=== PATIENT | female | born 1960 | race Caucasian/White ===

== ENCOUNTER 2019-04-21 15:21 | Emergency (ER) | payer OTHER, SELFPAY ==
[2019-04-21 15:37] VITALS: BP 173/90; PULSE 92; RESP 22; TEMP 37; O2SAT 99; BMI 23.0
--- NOTE | 2019-04-21 15:39 | DI.RAD.S_ITS ---
PROCEDURE: XR CHEST 1V INDICATIONS: Cough x 3 weeks. TECHNIQUE: One view of the chest was acquired. COMPARISON: None. FINDINGS: Surgical changes and devices: None apparent. Lungs and pleura: Lungs are clear. No pleural effusions or pneumothorax. Mediastinum: Mediastinal contours appear normal. Heart size is normal. Bones and chest wall: No suspicious bony lesions. Overlying soft tissues appear unremarkable. IMPRESSION: No acute cardiopulmonary process is evident. Dictated by: Cheikh Mohan M.D. on 04/21/2019 at 15:18 Approved by: Cheikh Mohan M.D. on 04/21/2019 at 15:30
--- NOTE | 2019-04-21 15:42 | ED.DIZZY ---
HPI - Dizziness <LUZ Coyne - Last Filed: 04/21/19 21:44> General Chief Complaint: Dizziness Stated Complaint: fatigue, nausea, lightheaded today Time Seen by Provider: 04/21/19 15:30 Source: patient Mode of arrival: ambulatory Limitations: no limitations History of Present Illness HPI Narrative: 58-year-old female with a history of chronic neutropenia ranging from 2-2.6 for the past 30 years, presents emergency department today [place]. She states that she was walking and started to feel woozy so she sat down, he vomited once and then when out to dinner with her friends. She states she was able eat some chips and drink some water without vomiting. She states she still feels a little bit nauseated but denies any dizziness at this time, however she is supposed to drive back to [place] and she is worried about passing out. The patient states she drinks about 2-3 glasses of wine a day. The patient also admits she has been treated for upper respiratory infection she has had about for 2-3 week for which she is currently taking Bactrim for. She denies any chest pain, vision changes, headaches, head trauma, neck pain, chest pain, shortness of breath, abdominal pain, diarrhea, or complete syncope. Related Data Allergies Allergy/AdvReac Type Severity Reaction Status Date / Time barium sulfate Allergy Verified 04/21/19 15:37 Review of Systems <LUZ Coyne - Last Filed: 04/21/19 21:44> Review of Systems REVIEW OF SYSTEMS: GENERAL: Denies fever or chills. HENT: No head trauma, hearing loss or sore throat. EYES: No loss of vision, double vision, eye pain, or irritation. CARDIOVASCULAR: Complains of lightheadedness, see HPI. RESPIRATORY: No shortness of breath or cough. GASTROINTESTINAL: Complains of vomiting, see HPI. GENITOURINARY: No flank pain or dysuria. MUSCULOSKELETAL: No pain, weakness, or deformities. INTEGUMENTARY: No rash, lesions, or pruritus. NEURO: No numbness, tingling, memory loss, or confusion. PSYCH: No behavior or mood changes. PFSH <LUZ Coyne - Last Filed: 04/21/19 21:44> Medical History Neutropenia (Acute) Social History Smoking Status: Never smoker Social History Smoking Status: Never smoker Exam <LUZ Coyne - Last Filed: 04/21/19 21:44> Initial Vital Signs Initial Vital Signs: Vital Signs Temperature 98.6 F 04/21/19 15:37 Pulse Rate 92 H 04/21/19 15:37 Respiratory Rate 22 04/21/19 15:37 Blood Pressure 173/90 H 04/21/19 15:37 Pulse Oximetry 99 04/21/19 15:37 PHYSICAL EXAMINATION: GENERAL: Well groomed, alert, and cooperative Answers questions promptly and appropriately. Vital signs noted. HENT: Normocephalic, atraumatic. Ear canals patent, tympanic membranes normal without irritation or effusion, crisp light reflex present. Oral mucosa is pink and moist, no caries or lesions present. Pharynx without erythema. EYES: PERRLA, EOMIs, conjunctiva pink, sclera white, no periorbital swelling. NECK: Full range of motion, nontender. LYMPH: No lymphadenopathy. CHEST: Normal to inspection and without deformities. CARDIOVASCULAR: S1 and S2 sounds normal. Regular rate and rhythm, no murmurs, clicks, or bruits. No pedal edema. Patient able to ambulate without dizziness. RESPIRATORY: Normal respiratory rate, trachea midline, airway patent. No stridor, nasal flaring or accessory muscle use. Lungs are clear in all spear without wheeze, rhonchi, or crackles. GASTROINTESTINAL: Bowel sounds normoactive. Abdomen is soft and non-tender. No organomegaly. MUSCULOSKELETAL: Normal gait and coordination. Equal tone and mass bilaterally. No spinal tenderness or deformities. EXTREMITIES: CMS intact. Moves all extremities. SKIN: Warm, dry, soft, appropriate color for ethnicity. No lesions, rashes, or wounds. NEURO: Alert and Oriented X 3. CN III-XII intact. Good coordination. No ataxia, or sensory deficits, or cognitive issues. PSYCH: Appropriate affect and mood. <Carmen Michaud DO - Last Filed: 04/22/19 07:50> Initial Vital Signs Initial Vital Signs: Vital Signs Temperature 98.6 F 04/21/19 15:37 Pulse Rate 92 H 04/21/19 15:37 Respiratory Rate 22 04/21/19 15:37 Blood Pressure 173/90 H 04/21/19 15:37 Pulse Oximetry 99 04/21/19 15:37 Scores <Lisa LUZ Perla - Last Filed: 04/21/19 21:44> HEART Score Heart Score history: Slightly Suspicious Heart Score EKG: Normal Heart Score Age: 45-64 years old Heart Score risk factors: 1-2 risk factors Heart Score troponin: < or = to normal limit Heart Score Total: 2 Course <Lisa VitaleLUZ oakes - Last Filed: 04/21/19 21:44> Course Narrative: After rehydration with normal saline, patient states she is feeling much better and is ready go home. Orders Ordered: Discontinued Medications Sodium Chloride (Normal Saline 0.9%) 1,000 mls @ 1,000 mls/hr IV BOLUS ONE Stop: 04/21/19 16:37 Last Infusion: 04/21/19 17:36 Dose: 0 mls/hr Admin: 04/21/19 16:08 Dose: 1,000 mls/hr Ondansetron HCl (Zofran) 4 mg IV NOW ONE Stop: 04/21/19 15:39 Last Admin: 04/21/19 16:07 Dose: 4 mg Consultations Consultation #1: Patient staffed Dr. Michaud. Vital Signs - 8 hr 04/21/19 15:37 04/21/19 16:48 04/21/19 17:46 Temperature 98.6 F Pulse Rate 92 H 85 77 Respiratory Rate 22 20 16 Blood Pressure 173/90 H 138/76 Blood Pressure [Left Arm] 154/77 H Pulse Oximetry 99 100 98 <Carmen Michaud DO - Last Filed: 04/22/19 07:50> Orders Ordered: Discontinued Medications Sodium Chloride (Normal Saline 0.9%) 1,000 mls @ 1,000 mls/hr IV BOLUS ONE Stop: 04/21/19 16:37 Last Infusion: 04/21/19 17:36 Dose: 0 mls/hr Admin: 04/21/19 16:08 Dose: 1,000 mls/hr Ondansetron HCl (Zofran) 4 mg IV NOW ONE Stop: 04/21/19 15:39 Last Admin: 04/21/19 16:07 Dose: 4 mg Vital Signs - 8 hr 04/21/19 15:37 04/21/19 16:48 04/21/19 17:46 Temperature 98.6 F Pulse Rate 92 H 85 77 Respiratory Rate 22 20 16 Blood Pressure 173/90 H 138/76 Blood Pressure [Left Arm] 154/77 H Pulse Oximetry 99 100 98 MDM - Dizziness <LUZ Coyne - Last Filed: 04/21/19 21:44> Medical Records Attestation: I reviewed the patient's medical records. Lab Data Attestation: I reviewed the patient's lab results. Result diagrams: 04/21/19 15:55 04/21/19 15:55 Lab Results 04/21/19 04/21/19 04/21/19 Range/Units 15:55 15:55 16:35 WBC 1.6 L* (4.5-11.0) X10^3/uL RBC 4.06 (4.0-5.2) X10^6/uL Hgb 14.0 (12.0-16.0) g/dL Hct 40.5 (36-46) % MCV 99.7 (80-100) fL MCH 34.3 H (26-34) PG MCHC 34.4 (30-36) % RDW 12.0 (11.6-14.8) % Plt Count 298 (150-400) X10^3/uL Neut % (Auto) 17.7 L (50-75) % Lymph % (Auto) 47.6 H (25-40) % Rich % (Auto) 33.1 H (3-14) % Eos % (Auto) 0.2 L (2-4) % Baso % (Auto) 1.4 (0-2) % Neut # (Auto) 300 L (8493-2270) /uL Lymph # (Auto) 800 L (0194-8059) /uL Rich # (Auto) 500 (0-900) /uL Eos # (Auto) 0 (0-450) /uL Baso # (Auto) 0 (0-100) /uL Sodium 130 L (137-145) mmol/L Potassium 4.2 (3.4-5.1) mmol/L Chloride 88 L (98-107) mmol/L Carbon Dioxide 29 (22-32) mmol/L BUN 9 (7-17) mg/dL Creatinine 0.50 L (0.52-1.04) mg/dL Estimated GFR > 60.0 (>60) mL/min BUN/Creatinine Ratio 18.0 (6-22) Glucose 129 H (70-100) mg/dL Lactate 1.0 (0.7-2.1) mmol/L Calcium 9.6 (8.4-10.2) mg/dL Total Bilirubin 0.5 (0.2-1.3) mg/dL AST 50 H (14-36) IU/L ALT 66 H (9-52) IU/L Alkaline Phosphatase 104 (38-126) U/L Total Creatine Kinase 40 (30-135) U/L CK-MB (CK-2) TNP CK-MB (CK-2) Rel Index TNP Troponin I < 0.012 (0.01-0.034) ng/mL Total Protein 9.0 H (6.3-8.2) g/dL Albumin 5.0 (3.5-5.0) g/dL Globulin 4.0 (1.7-4.1) g/dL Albumin/Globulin Ratio 1.3 (1.0-2.8) Urine Dip Bedside Urine Glucose Negative Bedside Urine Bilirubin - Negative Bedside Urine Ketone +/- 5 Urine Specific [place] 1.015 Bedside Urine Occult Blood - Negative Bedside Urine pH 6.0 Bedside Urine Protein - Negative Bedside Urine Urobilinogen - Negative Bedside Urine Nitrite - Negative Bedside Urine Leukocytes - Negative Esterase Imaging Data Chest x-ray: Radiologist's impression: [address] [address] XRay Report Signed Patient: Sofia Mueller BMR#: [id number] : 2Acct:[id number] Age/Sex: 58 / FDate of Service: 04/21/19 Loc: ED Accession Number: [id number] Procedure: XR chest 1V Ordering Provider: Lisa Perla PROCEDURE: XR CHEST 1V INDICATIONS: Cough x 3 weeks. TECHNIQUE: One view of the chest was acquired. COMPARISON: None. FINDINGS: Surgical changes and devices: None apparent. Lungs and pleura: Lungs are clear. No pleural effusions or pneumothorax. Mediastinum: Mediastinal contours appear normal. Heart size is normal. Bones and chest wall: No suspicious bony lesions. Overlying soft tissues appear unremarkable. IMPRESSION: No acute cardiopulmonary process is evident. Dictated by: Cheikh Mohan M.D. on 04/21/2019 at 15:18 Approved by: Cheikh Mohan M.D. on 04/21/2019 at 15:30 ECG Data Interpretation: Normal sinus rhythm, rate 84, [place] interval 158, QTC 416. No ST elevation or ST depression, no ectopy, no T-wave inversion. EKG was also read by Dr. Michaud. MDM Narrative Medical decision making narrative: Differential includes dehydration (most likely due to improvement with fluids, patient symptoms improved when she sat down, laboratory results, lack of findings for acute coronary syndrome), vagal response, viral infection (patient reports vomiting), for cardiac disease (less likely due to normal EKG, normal cardiac enzymes, no chest pain or other acute complaint). I suspect that patient's neutropenia was made worse by her long course of Bactrim and ciprofloxacin. After chest x-ray evaluation I do not suspect an upper respiratory tract infection or pneumonia and told patient to discontinue the antibiotics. Extensive instruction was given to patient for follow-up of the labs, including a white blood cell count and liver enzymes (this may be affected by her alcohol intake). Patient verbalized understanding. Strict return precautions were given. <Carmen Michaud, - Last Filed: 04/22/19 07:50> Lab Data Lab Results 04/21/19 04/21/19 04/21/19 Range/Units 15:55 15:55 16:35 WBC 1.6 L* (4.5-11.0) X10^3/uL RBC 4.06 (4.0-5.2) X10^6/uL Hgb 14.0 (12.0-16.0) g/dL Hct 40.5 (36-46) % MCV 99.7 (80-100) fL MCH 34.3 H (26-34) PG MCHC 34.4 (30-36) % RDW 12.0 (11.6-14.8) % Plt Count 298 (150-400) X10^3/uL Neut % (Auto) 17.7 L (50-75) % Lymph % (Auto) 47.6 H (25-40) % Rich % (Auto) 33.1 H (3-14) % Eos % (Auto) 0.2 L (2-4) % Baso % (Auto) 1.4 (0-2) % Neut # (Auto) 300 L (8194-0700) /uL Lymph # (Auto) 800 L (6503-7870) /uL Rich # (Auto) 500 (0-900) /uL Eos # (Auto) 0 (0-450) /uL Baso # (Auto) 0 (0-100) /uL Sodium 130 L (137-145) mmol/L Potassium 4.2 (3.4-5.1) mmol/L Chloride 88 L (98-107) mmol/L Carbon Dioxide 29 (22-32) mmol/L BUN 9 (7-17) mg/dL Creatinine 0.50 L (0.52-1.04) mg/dL Estimated GFR > 60.0 (>60) mL/min BUN/Creatinine Ratio 18.0 (6-22) Glucose 129 H (70-100) mg/dL Lactate 1.0 (0.7-2.1) mmol/L Calcium 9.6 (8.4-10.2) mg/dL Total Bilirubin 0.5 (0.2-1.3) mg/dL AST 50 H (14-36) IU/L ALT 66 H (9-52) IU/L Alkaline Phosphatase 104 (38-126) U/L Total Creatine Kinase 40 (30-135) U/L CK-MB (CK-2) TNP CK-MB (CK-2) Rel Index TNP Troponin I < 0.012 (0.01-0.034) ng/mL Total Protein 9.0 H (6.3-8.2) g/dL Albumin 5.0 (3.5-5.0) g/dL Globulin 4.0 (1.7-4.1) g/dL Albumin/Globulin Ratio 1.3 (1.0-2.8) Urine Dip Bedside Urine Glucose Negative Bedside Urine Bilirubin - Negative Bedside Urine Ketone +/- 5 Urine Specific [place] 1.015 Bedside Urine Occult Blood - Negative Bedside Urine pH 6.0 Bedside Urine Protein - Negative Bedside Urine Urobilinogen - Negative Bedside Urine Nitrite - Negative Bedside Urine Leukocytes - Negative Esterase ECG Data Attestation: I personally reviewed and interpreted this ECG as follows: Prior ECG tracings: not available for review Interpretation: Sinus rhythm low voltage rate 84 P are [address] changes nonpathologic Q-waves noted in lead 3 and lead 2 only no prior to compare Discharge Plan Departure Patient Disposition: Home Clinical Impression: Acute dehydration Neutropenia Qualifiers: Neutropenia type: unspecified Qualified Code(s): D70.9 - Neutropenia, unspecified Discharge Date/Time: 04/21/19 17:47 Interventions: ED Discharge Assessment Last Done: 04/21/19 17:46 Instructions: DI for Dizziness-Nonvertigo, DI for Neutropenia Activity Restrictions/Additional Instructions: Thank you for entrusting me with your care today. As discussed, her chest x-ray was negative for any concerning findings such as pneumonia, your lab work showed elevated liver enzymes and a low white blood cell count. I suggest following up with your primary care provider in the next week for recheck of these labs. I also suggest decreasing alcohol intake as this may have caused your liver enzymes to be elevated. Please discontinue the Bactrim as well, may be responsible for the further decrease of your white blood cell count. Return to the emergency department if you develop fevers, chest pain, syncope, shortness of breath, or severe abdominal pain. Referrals: Dixon Pisano MD [Primary Care Provider] - <Cramen Michaud DO - Last Filed: 04/22/19 07:50> Cosign ED Attending Bunnyature Attestation: I was immediately available in the department for consultation. Documentation has been reviewed. I agree with assessment and plan.
--- NOTE | 2019-04-21 15:45 | ED_ITS ---
HPI - Dizziness <LUZ Coyne - Last Filed: 04/21/19 21:44> General Chief Complaint: Dizziness Stated Complaint: fatigue, nausea, lightheaded today Time Seen by Provider: 04/21/19 15:30 Source: patient Mode of arrival: ambulatory Limitations: no limitations History of Present Illness HPI Narrative: 58-year-old female with a history of chronic neutropenia ranging from 2-2.6 for the past 30 years, presents emergency department today after [place]. She states that she was walking and started to feel woozy so she sat down, he vomited once and then when out to dinner with her friends. She states she was able eat some chips and drink some water without vomiting. She states she still feels a little bit nauseated but denies any dizziness at this time, however she is supposed to drive back to [place] and she is worried about passing out. The patient states she drinks about 2-3 glasses of wine a day. The patient also admits she has been treated for upper respiratory infection she has had about for 2-3 week for which she is currently taking Bactrim for. She denies any chest pain, vision changes, headaches, head trauma, neck pain, chest pain, shortness of breath, abdominal pain, diarrhea, or complete syncope. Related Data Allergies Allergy/AdvReac Type Severity Reaction Status Date / Time barium sulfate Allergy Verified 04/21/19 15:37 Review of Systems <LUZ Coyne - Last Filed: 04/21/19 21:44> Review of Systems REVIEW OF SYSTEMS: GENERAL: Denies fever or chills. HENT: No head trauma, hearing loss or sore throat. EYES: No loss of vision, double vision, eye pain, or irritation. CARDIOVASCULAR: Complains of lightheadedness, see HPI. RESPIRATORY: No shortness of breath or cough. GASTROINTESTINAL: Complains of vomiting, see HPI. GENITOURINARY: No flank pain or dysuria. MUSCULOSKELETAL: No pain, weakness, or deformities. INTEGUMENTARY: No rash, lesions, or pruritus. NEURO: No numbness, tingling, memory loss, or confusion. PSYCH: No behavior or mood changes. PFSH <LUZ Coyne - Last Filed: 04/21/19 21:44> Medical History Neutropenia (Acute) Social History Smoking Status: Never smoker Social History Smoking Status: Never smoker Exam <LUZ Coyne - Last Filed: 04/21/19 21:44> Initial Vital Signs Initial Vital Signs: Vital Signs Temperature 98.6 F 04/21/19 15:37 Pulse Rate 92 H 04/21/19 15:37 Respiratory Rate 22 04/21/19 15:37 Blood Pressure 173/90 H 04/21/19 15:37 Pulse Oximetry 99 04/21/19 15:37 PHYSICAL EXAMINATION: GENERAL: Well groomed, alert, and cooperative Answers questions promptly and appropriately. Vital signs noted. HENT: Normocephalic, atraumatic. Ear canals patent, tympanic membranes normal without irritation or effusion, crisp light reflex present. Oral mucosa is pink and moist, no caries or lesions present. Pharynx without erythema. EYES: PERRLA, EOMIs, conjunctiva pink, sclera white, no periorbital swelling. NECK: Full range of motion, nontender. LYMPH: No lymphadenopathy. CHEST: Normal to inspection and without deformities. CARDIOVASCULAR: S1 and S2 sounds normal. Regular rate and rhythm, no murmurs, clicks, or bruits. No pedal edema. Patient able to ambulate without dizziness. RESPIRATORY: Normal respiratory rate, trachea midline, airway patent. No st ridor, nasal flaring or accessory muscle use. Lungs are clear in all spear without wheeze, rhonchi, or crackles. GASTROINTESTINAL: Bowel sounds normoactive. Abdomen is soft and non-tender. No organomegaly. MUSCULOSKELETAL: Normal gait and coordination. Equal tone and mass bilaterally. No spinal tenderness or deformities. EXTREMITIES: CMS intact. Moves all extremities. SKIN: Warm, dry, soft, appropriate color for ethnicity. No lesions, rashes, or wounds. NEURO: Alert and Oriented X 3. CN III-XII intact. Good coordination. No ataxia, or sensory deficits, or cognitive issues. PSYCH: Appropriate affect and mood. <Carmen Michaud DO - Last Filed: 04/22/19 07:50> Initial Vital Signs Initial Vital Signs: Vital Signs Temperature 98.6 F 04/21/19 15:37 Pulse Rate 92 H 04/21/19 15:37 Respiratory Rate 22 04/21/19 15:37 Blood Pressure 173/90 H 04/21/19 15:37 Pulse Oximetry 99 04/21/19 15:37 Scores <Lisa LUZ Perla - Last Filed: 04/21/19 21:44> HEART Score Heart Score history: Slightly Suspicious Heart Score EKG: Normal Heart Score Age: 45-64 years old Heart Score risk factors: 1-2 risk factors Heart Score troponin: < or = to normal limit Heart Score Total: 2 Course <Lisa VitaleLUZ oakes - Last Filed: 04/21/19 21:44> Course Narrative: After rehydration with normal saline, patient states she is feeling much better and is ready go home. Orders Ordered: Discontinued Medications Sodium Chloride (Normal Saline 0.9%) 1,000 mls @ 1,000 mls/hr IV BOLUS ONE Stop: 04/21/19 16:37 Last Infusion: 04/21/19 17:36 Dose: 0 mls/hr Admin: 04/21/19 16:08 Dose: 1,000 mls/hr Ondansetron HCl (Zofran) 4 mg IV NOW ONE Stop: 04/21/19 15:39 Last Admin: 04/21/19 16:07 Dose: 4 mg Consultations Consultation #1: Patient staffed Dr. Michaud. Vital Signs - 8 hr 04/21/19 15:37 04/21/19 16:48 04/21/19 17:46 Temperature 98.6 F Pulse Rate 92 H 85 77 Respiratory Rate 22 20 16 Blood Pressure 173/90 H 138/76 Blood Pressure [Left Arm] 154/77 H Pulse Oximetry 99 100 98 <Carmen Michaud DO - Last Filed: 04/22/19 07:50> Orders Ordered: Discontinued Medications Sodium Chloride (Normal Saline 0.9%) 1,000 mls @ 1,000 mls/hr IV BOLUS ONE Stop: 04/21/19 16:37 Last Infusion: 04/21/19 17:36 Dose: 0 mls/hr Admin: 04/21/19 16:08 Dose: 1,000 mls/hr Ondansetron HCl (Zofran) 4 mg IV NOW ONE Stop: 04/21/19 15:39 Last Admin: 04/21/19 16:07 Dose: 4 mg Vital Signs - 8 hr 04/21/19 15:37 04/21/19 16:48 04/21/19 17:46 Temperature 98.6 F Pulse Rate 92 H 85 77 Respiratory Rate 22 20 16 Blood Pressure 173/90 H 138/76 Blood Pressure [Left Arm] 154/77 H Pulse Oximetry 99 100 98 MDM - Dizziness <LUZ Coyne - Last Filed: 04/21/19 21:44> Medical Records Attestation: I reviewed the patient's medical records. Lab Data Attestation: I reviewed the patient's lab results. Result diagrams: 04/21/19 15:55 04/21/19 15:55 Lab Results 04/21/19 04/21/19 04/21/19 Range/Units 15:55 15:55 16:35 WBC 1.6 L* (4.5-11.0) X10^3/uL RBC 4.06 (4.0-5.2) X10^6/uL Hgb 14.0 (12.0-16.0) g/dL Hct 40.5 (36-46) % MCV 99.7 (80-100) fL MCH 34.3 H (26-34) PG MCHC 34.4 (30-36) % RDW 12.0 (11.6-14.8) % Plt Count 298 (150-400) X10^3/uL Neut % (Auto) 17.7 L (50-75) % Lymph % (Auto) 47.6 H (25-40) % Pratt % (Auto) 33.1 H (3-14) % Eos % (Auto) 0.2 L (2-4) % Baso % (Auto) 1.4 (0-2) % Neut # (Auto) 300 L (7764-2985) /uL Lymph # (Auto) 800 L (9130-6259) /uL Pratt # (Auto) 500 (0-900) /uL Eos # (Auto) 0 (0-450) /uL Baso # (Auto) 0 (0-100) /uL Sodium 130 L (137-145) mmol/L Potassium 4.2 (3.4-5.1) mmol/L Chloride 88 L (98-107) mmol/L Carbon Dioxide 29 (22-32) mmol/L BUN 9 (7-17) mg/dL Creatinine 0.50 L (0.52-1.04) mg/dL Estimated GFR > 60.0 (>60) mL/min BUN/Creatinine Ratio 18.0 (6-22) Glucose 129 H (70-100) mg/dL Lactate 1.0 (0.7-2.1) mmol/L Calcium 9.6 (8.4-10.2) mg/dL Total Bilirubin 0.5 (0.2-1.3) mg/dL AST 50 H (14-36) IU/L ALT 66 H (9-52) IU/L Alkaline Phosphatase 104 (38-126) U/L Total Creatine Kinase 40 (30-135) U/L CK-MB (CK-2) TNP CK-MB (CK-2) Rel Index TNP Troponin I < 0.012 (0.01-0.034) ng/mL Total Protein 9.0 H (6.3-8.2) g/dL Albumin 5.0 (3.5-5.0) g/dL Globulin 4.0 (1.7-4.1) g/dL Albumin/Globulin Ratio 1.3 (1.0-2.8) Urine Dip Bedside Urine Glucose Negative Bedside Urine Bilirubin - Negative Bedside Urine Ketone +/- 5 Urine Specific [place] 1.015 Bedside Urine Occult Blood - Negative Bedside Urine pH 6.0 Bedside Urine Protein - Negative Bedside Urine Urobilinogen - Negative Bedside Urine Nitrite - Negative Bedside Urine Leukocytes - Negative Esterase Imaging Data Chest x-ray: Radiologist's impression: [address] [address] XRay Report Signed Patient: Sofia Mueller BMR#: [id number] : 2Acct:[id number] Age/Sex: 58 / FDate of Service: 04/21/19 Loc: ED Accession Number: [id number] Procedure: XR chest 1V Ordering Provider: Lisa Perla PROCEDURE: XR CHEST 1V INDICATIONS: Cough x 3 weeks. TECHNIQUE: One view of the chest was acquired. COMPARISON: None. FINDINGS: Surgical changes and devices: None apparent. Lungs and pleura: Lungs are clear. No pleural effusions or pneumothorax. Mediastinum: Mediastinal contours appear normal. Heart size is normal. Bones and chest wall: No suspicious bony lesions. Overlying soft tissues appear unremarkable. IMPRESSION: No acute cardiopulmonary process is evident. Dictated by: Cheikh Mohan M.D. on 04/21/2019 at 15:18 Approved by: Cheikh Mohan M.D. on 04/21/2019 at 15:30 ECG Data Interpretation: Normal sinus rhythm, rate 84, AR interval 158, QTC 416. No ST elevation or ST depression, no ectopy, no T-wave inversion. EKG was also read by Dr. Michaud. MDM Narrative Medical decision making narrative: Differential includes dehydration (most likely due to improvement with fluids, patient symptoms improved when she sat down, laboratory results, lack of findings for acute coronary syndrome), vagal response, viral infection (patient reports vomiting), for cardiac disease (less likely due to normal EKG, normal cardiac enzymes, no chest pain or other acute complaint). I suspect that patient's neutropenia was made worse by her long course of Bactrim and ciprofloxacin. After chest x-ray evaluation I do not suspect an upper respiratory tract infection or pneumonia and told patient to discontinue the antibiotics. Extensive instruction was given to patient for follow-up of the labs, including a white blood cell count and liver enzymes (this may be affected by her alcohol intake). Patient verbalized understanding. Strict return precautions were given. <Carmen Michaud, - Last Filed: 04/22/19 07:50> Lab Data Lab Results 04/21/19 04/21/19 04/21/19 Range/Units 15:55 15:55 16:35 WBC 1.6 L* (4.5-11.0) X10^3/uL RBC 4.06 (4.0-5.2) X10^6/uL Hgb 14.0 (12.0-16.0) g/dL Hct 40.5 (36-46) % MCV 99.7 (80-100) fL MCH 34.3 H (26-34) PG MCHC 34.4 (30-36) % RDW 12.0 (11.6-14.8) % Plt Count 298 (150-400) X10^3/uL Neut % (Auto) 17.7 L (50-75) % Lymph % (Auto) 47.6 H (25-40) % Pratt % (Auto) 33.1 H (3-14) % Eos % (Auto) 0.2 L (2-4) % Baso % (Auto) 1.4 (0-2) % Neut # (Auto) 300 L (1784-7118) /uL Lymph # (Auto) 800 L (3290-5440) /uL Pratt # (Auto) 500 (0-900) /uL Eos # (Auto) 0 (0-450) /uL Baso # (Auto) 0 (0-100) /uL Sodium 130 L (137-145) mmol/L Potassium 4.2 (3.4-5.1) mmol/L Chloride 88 L (98-107) mmol/L Carbon Dioxide 29 (22-32) mmol/L BUN 9 (7-17) mg/dL Creatinine 0.50 L (0.52-1.04) mg/dL Estimated GFR > 60.0 (>60) mL/min BUN/Creatinine Ratio 18.0 (6-22) Glucose 129 H (70-100) mg/dL Lactate 1.0 (0.7-2.1) mmol/L Calcium 9.6 (8.4-10.2) mg/dL Total Bilirubin 0.5 (0.2-1.3) mg/dL AST 50 H (14-36) IU/L ALT 66 H (9-52) IU/L Alkaline Phosphatase 104 (38-126) U/L Total Creatine Kinase 40 (30-135) U/L CK-MB (CK-2) TNP CK-MB (CK-2) Rel Index TNP Troponin I < 0.012 (0.01-0.034) ng/mL Total Protein 9.0 H (6.3-8.2) g/dL Albumin 5.0 (3.5-5.0) g/dL Globulin 4.0 (1.7-4.1) g/dL Albumin/Globulin Ratio 1.3 (1.0-2.8) Urine Dip Bedside Urine Glucose Negative Bedside Urine Bilirubin - Negative Bedside Urine Ketone +/- 5 Urine Specific [place] 1.015 Bedside Urine Occult Blood - Negative Bedside Urine pH 6.0 Bedside Urine Protein - Negative Bedside Urine Urobilinogen - Negative Bedside Urine Nitrite - Negative Bedside Urine Leukocytes - Negative Esterase ECG Data Attestation: I personally reviewed and interpreted this ECG as follows: Prior ECG tracings: not available for review Interpretation: Sinus rhythm low voltage rate 84 P are [address] changes nonpathologic Q-waves noted in lead 3 and lead 2 only no prior to compare Discharge Plan Departure Patient Disposition: Home Clinical Impression: Acute dehydration Neutropenia Qualifiers: Neutropenia type: unspecified Qualified Code(s): D70.9 - Neutropenia, unspecified Discharge Date/Time: 04/21/19 17:47 Interventions: ED Discharge Assessment Last Done: 04/21/19 17:46 Instructions: DI for Dizziness-Nonvertigo, DI for Neutropenia Activity Restrictions/Additional Instructions: Thank you for entrusting me with your care today. As discussed, her chest x-ray was negative for any concerning findings such as pneumonia, your lab work showed elevated liver enzymes and a low white blood cell count. I suggest following up with your primary care provider in the next week for recheck of these labs. I also suggest decreasing alcohol intake as this may have caused your liver enzymes to be elevated. Please discontinue the Bactrim as well, may be responsible for the further decrease of your white blood cell count. Return to the emergency department if you develop fevers, chest pain, syncope, shortness of breath, or severe abdominal pain. Referrals: Dixon Pisano MD [Primary Care Provider] - <Carmen Michaud DO - Last Filed: 04/22/19 07:50> Cosign ED Attending Bunnyature Attestation: I was immediately available in the department for consultation. Documentation has been reviewed. I agree with assessment and plan.
[2019-04-21 16:04] LABS: Add Manual Diff / Slide Review NO; Basophils Absolute Auto 0 /uL (0-100); Basophils Percent Auto 1.4 % (0-2); Eosinophils Absolute Auto 0 /uL (0-450); Eosinophils Percent Auto 0.2 % (2-4); Hematocrit 40.5 % (36-46); Lymphocytes Absolute Auto 800 /uL (1100-4500); Lymphocytes Percent Auto 47.6 % (25-40); Mean Corpuscular HGB Conc 34.4 % (30-36); Mean Corpuscular Hemoglobin 34.3 PG (26-34); Mean Corpuscular Volume 99.7 fL (80-100); Monocytes Absolute Auto 500 /uL (0-900); Monocytes Percent Auto 33.1 % (3-14); Neutrophils Absolute Auto 300 /uL (1500-7000); Neutrophils Percent Auto 17.7 % (50-75); Platelet Count 298 X10^3/uL (150-400); Red Blood Cell Count 4.06 X10^6/uL (4.0-5.2)
[2019-04-21 16:06] LABS: White Blood Cell Count 1.6 X10^3/uL (4.5-11.0)
[2019-04-21] MEDS: ONDANSETRON 4 MG/2 ML INJ IV (16:07)
[2019-04-21] MEDS: SODIUM CHLORIDE 0.9% 1,000 ML 1000 ML IV (16:08)
[2019-04-21 16:13] LABS: Alanine Aminotransferase 66 IU/L (9-52); Albumin Globulin Ratio 1.3 (1.0-2.8); Alkaline Phosphatase 104 U/L (38-126); Aspartate Aminotransferase 50 IU/L (14-36); Bilirubin Total 0.5 mg/dL (0.2-1.3); Blood Urea Nitrogen 9 mg/dL (7-17); Calcium 9.6 mg/dL (8.4-10.2); Carbon Dioxide 29 mmol/L (22-32); Chloride 88 mmol/L (98-107); Creatine Kinase 40 U/L (30-135); Estimated Glomerular Filt Rate > 60.0 mL/min (>60); Glucose 129 mg/dL (70-100); HEMOLYSIS < 15 (0-50); Potassium 4.2 mmol/L (3.4-5.1); Sodium 130 mmol/L (137-145)
[2019-04-21 16:26] LABS: Troponin I < 0.012 ng/mL (0.01-0.034)
--- NOTE | 2019-04-21 16:45 | PC.NURSE ---
Patient reports she has chronic neurtropenia. She developed an upper respiratory infection that went down in my lungs a few weeks ago. her doctor started her on cipro, which she reports si the antibiotic that works for me. She completed this course of abx and then still had the symptoms so her doctor started her on prednisone and bactrim about 5-7 days ago. States she finished prednisone taper pack today. States she drank alcohol last night while she was partying and then today drank plenty of water. [place] today when she began feeling lightheaded, dizzy, hot, sweaty, and vomited x1. near syncope but did not lose consciousness.
[2019-04-21 16:48] VITALS: BP 154/77; PULSE 85; RESP 20; O2SAT 100
[2019-04-21 17:46] VITALS: BP 138/76; PULSE 77; RESP 16; O2SAT 98
== END 2019-04-21 17:47 | disposition home or self-care (01) ==
PROVIDERS: Emergency Provider Nurse Practitioner; PCP Internal Medicine
DX: E86.0 Dehydration (principal); D70.9 Neutropenia, unspecified; R55 Syncope and collapse
CPT/HCPCS: 36415; 36591; 71045; 80053; 81003; 82550; 83605; 84484; 85025; 87040; 93005; 96361; 96374; 99283; 99285; J2405